=== PATIENT | female | born 1980 | race Caucasian/White ===

== ENCOUNTER 2020-09-10 06:10 | Day surgery (SDC) | payer OTHER ==
[~2020-09-10] VITALS: Ht 165.1 cm; Wt 99.3 kg
[2020-09-10 06:29] LABS: HEMOGLOBIN 15.5 g/dL (12-16); MCH 30.9 pg (26.0-34.0); MCHC 34.5 g/dL (31.0-37.0); MCV 89.6 fL (80.0-100.0); MEAN PLATELET VOLUME 9.1 fL (7.4-10.4); RBC 5.02 10x6/uL (4.00-5.40); RDW 13.5 % (11.5-14.5); WBC 9.3 10x3/uL (4.8-10.8)
[2020-09-10 07:05] LABS: HCG SERUM NEGATIVE (NEGATIVE)
[2020-09-10 07:26] VITALS: BP 130/90; Ht 165.1 cm; Wt 99.3 kg
--- NOTE | 2020-09-10 14:06 | NUR ---
1320 VAGINAL PACKING REMOVED AND MODERATE AMT OF BLOOD NOTED. NO CLOTS NOTED. SHERLYN PAD IN PLACE. ASSISTED PT WITH GETTING DRESSED. DENIES PAIN. INSTRUCTIONS GIVEN AND RX
== END 2020-09-10 13:50 | disposition home or self-care (01) ==
LOC: D.OPS 06:10
PROVIDERS: Anesthesiology; ATTEND Obstetrics & Gynecology Maternal & Fetal Medicine
DX: N92.0 Excessive and frequent menstruation with regular cycle (principal); N94.6 Dysmenorrhea, unspecified; N81.6 Rectocele; R10.2 Pelvic and perineal pain